=== PATIENT | male | born 1955 | race Caucasian/White ===

== ENCOUNTER 2017-11-18 09:10 | Inpatient (IN) ==
[2017-11-18] MEDS ORDERED: CeFAZolin Syr 2,000MG/20 ML 2,000 MG/20 ML SYRINGE IVPB ONE (09:26)
[2017-11-18] MEDS ORDERED: Albuterol 2.5 MG/3 ML NEBULIZER IH ONE (09:26)
--- NOTE | 2017-11-18 09:29 | History & Physical Report ---
Date of Encounter: 11/18/17 Time of Encounter: 09:29 24 Hour HP Update - Instructions Instructions: If the History and Physical is less than 30 days old and was completed prior to A.M. admission and or procedure and has NOT been updated on calendar day of procedure please complete this update prior to performing procedure. - Update Patient reports changes in Medical Condition: No Changes in examination, assessment, or condition: No Changes in Medication: No Preop tests/diagnostics Reviewed: Yes Surgery Remains Indicated: Yes Consent for Planned Operative Procedure(s) Verified: Yes - Pre-Operative Checklist Preoperative Checklist Indicated: No Prophylactic Antibiotic Ordered: Yes Is VTE Prophylaxis Indicated?: Yes
[2017-11-18] MEDS: Ringers Solution, Lactated 1,000 ML IVC SCH ×3 (09:43→15:36)
--- NOTE | 2017-11-18 09:57 | Anesthesia Evaluation PreOp ---
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 History: Other (mood problems) Other Medical History: Diabetes Type II Anesthesia History: No Prior Anesthetic Complications, Past Anesthesia (R hip, back sx, lithotripsy, kidney stone, teeth extraction, colonoscopy, L knee bursectomy) Alcohol Use: occasionally Drug use: marijuana Medications and Allergies 3 Allergy/AdvReac Type Severity Reaction Status Date / Time No Known Allergies Allergy Unverified 11/14/17 09:15 - Meds/Allergy Pre-op Review Medications Reviewed: Yes Allergies Reviewed: Yes Beta Blockers on Current Med List: No Anesthesia Results - Labs Laboratory Tests 11/14/17 11/14/17 11/14/17 09:25 09:25 09:25 WBC 10.1 Hgb 15.9 Hct 47.3 Plt Count 222 PT 10.0 INR 0.9 APTT 32.6 Sodium 140 Potassium 4.3 Chloride 107 Carbon Dioxide 24 BUN 14 Creatinine 0.88 BUN/Creatinine Ratio 16 POC Glucose Est Mean Plasma Glucose Hemoglobin A1c 11/14/17 11/18/17 09:25 09:30 WBC Hgb Hct Plt Count PT INR APTT Sodium Potassium Chloride Carbon Dioxide BUN Creatinine BUN/Creatinine Ratio POC Glucose 107 H Est Mean Plasma Glucose 140 Hemoglobin A1c 6.5 H - Imaging EKG: report reviewed (yInterpretive Statements SINUS RHYTHM WITH OCCASIONAL SUPRAVENTRICULAR PREMATURE COMPLEXES NONSPECIFIC T-WAVE ABNORMALITY Electronically Signed On 11-15-2017 10:10:51 EDT by Alvaro Fu) Anesthesia Exam O2 Sat Height 1.65 m Height 1.65 m Height 1.65 m Weight 88.451 kg Weight 88.451 kg Weight 88.451 kg O2 Sat by Pulse Oximetry 95 O2 Sat by Pulse Oximetry 94 Vital Signs Resp Pulse Ox 18 94 11/18/17 09:30 11/18/17 09:30 Blood glucose: 107 Height: 65" Weight: 195lbs - HEENT Pupil (Motor): Pupils equal, EOMI - BRAKE COUPLER DINKEY LOC: Oriented BRAKE COUPLER DINKEY Motor: Normal RUE, Normal LUE, Normal RLE, Normal LLE, Normal Face BRAKE COUPLER DINKEY Sensory: Normal: RUE, LUE, RLE, LLE, Face - Cardiac Rhythm: Regular - Pulmonary Breath Sounds: bilateral Clear Respiratory Effort: Symmetrical Anesthesia Assess/Plan ASA Score: 2 Modified [place] Scale for Level of Consciousness: Cooperative, oriented, and tranquil Anesthetic Plan: General (plan b), Regional (spinal with duramorph), MAC Monitoring Plan: Standard Monitors Recovery Plan: PACU
[2017-11-18] MEDS ORDERED: *HR* Midazolam HCl 2 MG/2 ML VIAL ONE (10:07)
[2017-11-18] MEDS ORDERED: *HR* FentaNYL (PF) 100 MCG/2 ML VIAL ONE (10:07)
[2017-11-18] MEDS ORDERED: *HR* Propofol 200 MG/20 ML VIAL IVP ONE (10:07)
[2017-11-18] MEDS ORDERED: Propofol 500 MG/50 ML INFUS..BTL ONE (10:08)
[2017-11-18] MEDS ORDERED: Ethanol\\Acetic Acid\\Na Ace\\Ben 1,000 ML IRRIG.SOLN IR ONE (10:09)
[2017-11-18] MEDS ORDERED: Scopolamine Patch 1.5 MG PATCH.TD72 ONE (10:14)
[2017-11-18] MEDS ORDERED: Morphine Sulfate/PF 5mg/10mL Vial ONE (10:15)
--- NOTE | 2017-11-18 10:41 | Discharge Summary ---
Orders not resulted at time of discharge: Pending orders 11/18/17 09:29 Left Hip [XR hip complete LT] [XR] Routine 11/18/17 09:30 Hemoglobin and Hematocrit [HEME] Routine Date of Encounter: 11/21/17 Time of Encounter: 07:47 - Discharge Diagnosis (1) Hyperlipidemia Priority: Secondary Status: Chronic Qualifiers: Hyperlipidemia type: unspecified Qualified Code(s): E78.5 - Hyperlipidemia , unspecified (2) Type 2 diabetes mellitus Priority: Secondary Status: Acute Qualifiers: Diabetes mellitus termination clerk insulin use: unspecified detention insulin use status Diabetes mellitus complication status: without complication Qualified Code(s): E11.9 - Type 2 diabetes mellitus without complications (3) Tobacco consumption Priority: Secondary Status: Chronic (4) Obesity (BMI 30.0-34.9) Priority: Secondary Status: Chronic (5) Arthritis of left hip Priority: Primary Status: Chronic (6) Status post total hip replacement, left Priority: Primary Status: Acute - Hospital Course Hospital course: Mr. Gonzalez is a 62 year old male Status post total hip replacement The patient had an uneventful postoperative course. They received antibiotics and physical therapy and were discharged in stable condition. There will follow -up in the office in 2 weeks. - Time Spent with Patient Total time spent providing and/or coordinating discharge services: - Discharge Medications Home Medications: Aspirin Enteric Coated [Aspirin EC] 325 mg PO BID #20 tablet. 11/18/17 [Rx] Atorvastatin [Lipitor] 40 mg PO HS 11/18/17 [History] Citalopram Hydrobromide [Citalopram HBr] 40 mg PO DAILY 11/18/17 [History] Meloxicam 15 mg PO DAILY 11/18/17 [History] OxyCODONE Immed Rel [Roxicodone 5 MG] 5 mg PO Q4HR PRN 5 Days #20 tablet [Rx] metFORMIN [Glucophage] 500 mg PO BID 11/18/17 [History] Allergies/Adverse Reactions: 3 Allergy/AdvReac Type Severity Reaction Status Date / Time No Known Allergies Allergy Verified 11/18/17 10:08 Primary care physician: Jan Silva MD Labs on day of discharge: Labs from last 24 hours 11/18/17 09:30 POC Glucose 107 H - Patient Status Disposition: Home, Self-Care Condition: Good Functional capacity at discharge: uses cane/walker Overall status at discharge: patient is progressing back to baseline - Discharge Instructions Follow Up With: Elissa Fernandez PAC [Physician Shelter Case Manager] - 11/25/17 1:30 pm Jan Silva MD [Primary Care Provider] - Cherelle Dillon [Family Provider] - Additional Instructions: Discharge Instructions: Total Hip Replacement Please call [facility] ([phone]), your Primary Care Physician, or report to the Emergency Room if you have any of the following symptoms: Nausea, vomiting, fever greater that 101.5, swelling, chest pain, shortness of breath, increased pain/redness/drainage/odor for your incision site, numbness/ tingling, or any other concerning symptoms. ACTIVITY:Weight-bearing as tolerated for 8 weeks with hip dislocation precautions that physical therapy taught you. You may progress as tolerated under the guidance of your physical therapist. You do not need to sleep with a pillow between your legs. You can also seep on the operative side or on your stomach. MEDICATIONS: Upon discharge resume your home medications. Take all the medications as prescribed. Take a stool softener if taking narcotic pain medications. Stool softeners are only effective if you drink enough fluids. Drink 6-8 glass of water or fluids a day, unless this is not allowed for another health problem. Despite using stool softeners, if you haven't had a bowel movement in 3 days, please switch to a gentle laxative. Gentle laxatives are sold over the counter. You should have a bowel movement within 24 hours, if not call the office. You will be discharged from the hospital with a prescription for pain medication. You are encouraged to decrease the use of narcotic pain medication as tolerated. Should you require a refill, please call the office. [facility] prescribes narcotic pain medication for only 4-6 weeks after surgery. If you require pain medication beyond this time period, you may be referred to your Primary Care Physician or to the Pain Clinic for further evaluation. Plan ahead for refills on pain medication as many narcotics either need to be picked up at the office or mailed. It is best to call 48-72 hours in advance of needing a prescription refill so you don't run out of medication. To help control the post-operative pain, you may take NSAIDs (Aleve,Advil, Motrin, ibuprofen, naprosyn) or Tylenol as prescribed on the bottle in addition to the pain medication. ANTICOAGULATION (blood thinners): Continue your Aspirin, Lovenox or Coumadin as prescribed to help prevent a blood clot in the leg or in the lungs. As long as your incision remains dry and you tolerate the NSAIDs (Aleve, Advil, Motrin, Ibuprofen, Naprosyn), it is OK to use the NSAIDS while you are taking your anticoagulation medication. Should your incision start to drain, stop the NSAID and contact our office. Common symptoms of blood clot in the legs include: localized pain, swelling, calf tenderness, redness or discoloration of the skin. Blood clot in the lung symptoms include: shortness of breath, rapid pulse, sweating, and chest pain that worsens with deep breathing, coughing up blood, lightheadedness, feelings of anxiety. If you experience any of these symptoms notify your physician immediately, go to the emergency room, or if having trouble breathing, call 911. WOUND CARE: Leave the dressing on for 7 to 10days. You may change the dressing if it is saturated greater than 50%. Do not get the dressing wet at anytime. Wash your hands with antibacterial soap, rinse and dry prior to any wound care. If you have yi the visiting nurse or rehab facility can remove the stapes 10-14 days after surgery and place steri-strips across the wound. Leave the steri-strips in place until they fall off on their own. You may let water from the shower run on top of the steri-strips. If you do not have a visiting nurse or rehab facility, you will need to return to the office at 10-14 days for the yi to be removed. If you have itching or redness around the dressing call the office. FOLLOW-UP: Please follow up with your surgeon in the orthopedic clinic in 6 weeks from the day of surgery. If you have yi that need to be removed, you will need to come back to the office in 10-14 days from the day of surgery.
[2017-11-18] MEDS ORDERED: *HR* PHENYLEPHRINE 1,000 MCG/10 ML SYRINGE IVP ONE (11:04)
[2017-11-18] MEDS ORDERED: *HR* Promethazine 25 MG/ML VIAL IVP PRN ×2 (11:16→18:07)
--- NOTE | 2017-11-18 11:59 | Orthopedic Operative Note ---
Date of procedure: 11/18/17 Pre-op diagnosis: left hip arthritis Post-op diagnosis: same Procedure: Procedure: Left Total Hip Replacment robotic-assisted Estimated blood loss: 200 cc Hardware: Metal and polyethylene replacement. Reji DM Cup: 54 cup Femoral size 7 stem Head: +12 head with Jayde Procedural Notes: Grade 4 arthritic changes femoral head acetabular socket, procedure performed with robotic assistance. Operative leg 14 mm shorter than nonoperative leg as measured by CT scan preop Operative procedure: The patient was brought to the operating room and placed on the operating room table. After general anesthesia was administered the patient was placed in the lateral decubitus position with the operative leg up. All pressure points were padded appropriately and the head was stabilized in the neutral position. The operative extremity was prepped and draped in the sterile surgical fashion patient received IV antibiotic prior to skin incision. 3 Steinmann pins were placed in the iliac crest 3 cm proximal to the anterior superior iliac spine this was for the robotic-assisted sensor. This was done through a small 2 cm incision. A standard posterior approach is made to the operative hip, the incision was made through the skin and subcutaneous tissue hemostasis was obtained with Bovie cautery. Using careful sharp dissection the fascia was identified and incised exposing the external rotators. The femoral checkpoint was placed leg length was measured at this time utilizing robotic assistance. The external rotators were released off the greater trochanter and tagged with # 2 FiberWire suture. The capsule was T'd open and the hip was brought into internal rotation. Patient noted to have grade 4 arthritic changes femoral head. The femoral neck cut was made at the appropriate level roughly Xmm proximal to the lesser trochanter aced on preoperative templating. An anterior capsulotomy was performed for the anterior retractor. Soft tissues removed from the acetabulum. Patient noted to have grade 4 arthritic changes acetabulum. The acetabulum checkpoint was placed confirmed. The acetabulum was then mapped with robotic assistance. Based on the preoperative plan the acetabulum was reamed in one step with a 53 reamer. The 54 acetabulum was impacted with robotic assistance and 40 degrees of abduction and 21 degrees of anteversion. The hip was brought back in to internal rotation and prepared with the crap game box person followed by the canal finder followed by the reaming process to a size 7/ 8 broaching process in 20 degrees anteversion. It was broached up to the appropriate size 7. Trial reduction revealed leg lengths close to normal. The femoral implant was impacted in place in 20 degrees of anteversion. Trial reduction found the hip to be stable with 12 head and Jayde. The trials were removed and the real implants were impacted in place. The hip was reduced, patient had robotic confirmed leg length of 1 mm longer than the contralateral side. The hip had excellent stability with forward flexion to 90 degrees adduction of 30 degrees and internal rotation of 60 degrees. The hip had no shuck. The hips after 2 minutes with a antibacterial solution. It was irrigated out with 2 L of pulse irrigation. The checkpoints were removed, Steinmann pins were removed. The hip was closed by the PA. The deep tissue was irrigated and closed deep with #1 PDS suture superficially with 0 PDS suture and skin was closed with Dermabond and zip tie. The patient was placed in a sterile dressing and abduction pillow. The patient was extubated and transferred to the recovery room in stable condition. Anesthesia: spinal Surgeon: Ac Carpenter Was there an assistant professor of spanish present: No Estimated blood loss (cc): 200 Condition: stable Disposition: PACU
[2017-11-18 12:38] LABS: Hematocrit 39.4 % (37.5-50.1)
[2017-11-18 12:40] LABS: Hemoglobin 13.3 g/dL (12.9-16.9)
[2017-11-18] MEDS ORDERED: Naloxone 0.4 MG/ML INJ IVP PRN (12:49)
[2017-11-18] MEDS ORDERED: MOM Conc 10 ML UD.LIQ PO PRN (12:49)
[2017-11-18] MEDS ORDERED: *HR* Dextrose 50 % in Water (Syg) 50 ML SYRINGE IVP PRN (12:49)
[2017-11-18] MEDS ORDERED: Dextrose Gel 15 GM/37.5 ML TUBE PO PRN ×2 (12:49)
[2017-11-18] MEDS ORDERED: Temazepam 15 MG CAPSULE PO PRN (12:49)
[2017-11-18] MEDS ORDERED: traMADol 50 MG TABLET PO PRN (12:49)
[2017-11-18] MEDS ORDERED: Sennosides 8.6 MG TABLET PO PRN (12:49)
[2017-11-18] MEDS ORDERED: D5% in Water 1,000 ML IVC PRN (12:49)
[2017-11-18] MEDS: Insulin LISPRO 300 UNITS/3 ML VIAL SQ SCH ×3 (14:05→21:42)
[2017-11-18] MEDS: Ondansetron 4 MG/2 ML VIAL IVP PRN (14:10)
[2017-11-18] MEDS: *HR* OxyCODONE/APAP 5/325 TABLET PO PRN ×2 (15:32→21:38)
--- NOTE | 2017-11-18 16:52 | Event Note ---
Date of Encounter: 11/18/17 Time of Encounter: 13:30 Patient seen this afternoon following surgery for concern of possible foot drop. Patient's nurse notified me of this concern and patient's worry regarding this. Angiogramed patient resting in bed alert and oriented. Spouse at bedside. Inspection of the left leg is expected postoperative changes with incision with bandage as well as mild swelling to the operative leg. Patient is neurovascularly intact to left lower leg. He does admit to some altered sensation ongoing however patient received a spinal block prior to surgery and therefore this is expected. Range of motion of the left foot is full and intact strength is intact. No foot drop noted. Believe he turning in of the left foot is related to patient's immediate postoperative state. Discussed this with patient and patient's spouse as well as patient's nurse and informed and to keep close watch for any worsening of his symptoms or loss of range of motion or strength. They verbalized understanding.
[2017-11-18] MEDS: *HR* Enoxaparin 30 MG/0.3 ML SYRINGE SQ SCH (17:43)
[2017-11-18] MEDS ORDERED: *HR* Enoxaparin 30 MG/0.3 ML SYRINGE SQ SCH (18:00)
[2017-11-18] MEDS ORDERED: Famotidine 20 MG TABLET PO SCH ×2 (18:05→18:15)
[2017-11-18] MEDS: CeFAZolin Pre 2,000 MG/100 ML 2,000 MG/100 ML BAG IVPB SCH (18:27)
[2017-11-18] MEDS: tiZANidine 4 MG TABLET PO PRN (18:27)
[2017-11-18] MEDS: Ascorbic Acid 500 MG TABLET PO SCH (18:28)
[2017-11-18] MEDS: *HR* Metformin 500 MG TABLET PO SCH (18:28)
[2017-11-19] MEDS: CeFAZolin Pre 2,000 MG/100 ML 2,000 MG/100 ML BAG IVPB SCH (00:51)
[2017-11-19 00:57] LABS: Hematocrit 36.8 % (37.5-50.1); Hemoglobin 12.7 g/dL (12.9-16.9)
[2017-11-19 01:18] LABS: BUN/Creatinine Ratio 18 (6-26); Blood Urea Nitrogen 14 mg/dL (8-23); Calcium 8.8 mg/dL (8.6-10.3); Carbon Dioxide 26 mEq/L (23-29); Chloride 104 mEq/L (98-107); Glucose 135 mg/dL (70-105); Osmolality,Calculated 287 (280-300); Potassium 4.5 mEq/L (3.5-5.1); Sodium 137 mEq/L (136-145); eGFR For African Americans > 60 (> 60); eGFR For Non-African Americans > 60 (> 60)
[2017-11-19] MEDS: *HR* OxyCODONE Immed Rel 5 MG TABLET PO PRN ×5 (03:58→20:54)
[2017-11-19] MEDS: *HR* Enoxaparin 30 MG/0.3 ML SYRINGE SQ SCH ×2 (06:04→16:56)
[2017-11-19] MEDS: Ringers Solution, Lactated 1,000 ML IVC SCH ×2 (06:04→17:07)
[2017-11-19] MEDS: tiZANidine 4 MG TABLET PO PRN ×2 (07:40→15:38)
[2017-11-19] MEDS: Ascorbic Acid 500 MG TABLET PO SCH ×2 (07:41→16:56)
[2017-11-19] MEDS: Multivit/Ca/Min/Fe/FA 1 TAB TABLET PO SCH (07:41)
[2017-11-19] MEDS: *HR* Metformin 500 MG TABLET PO SCH ×2 (07:41→16:56)
[2017-11-19] MEDS: Insulin LISPRO 300 UNITS/3 ML VIAL SQ SCH ×4 (07:44→20:56)
[2017-11-19] MEDS: Ondansetron 4 MG/2 ML VIAL IVP PRN (08:42)
[2017-11-19] MEDS: Acetaminophen IV 1,000 MG/100 ML INFUS..BTL IVPB PRN ×2 (10:14→21:06)
[2017-11-19] MEDS: *HR* OxyCODONE/APAP 5/325 TABLET PO PRN (23:34)
[2017-11-20] MEDS: *HR* OxyCODONE Immed Rel 5 MG TABLET PO PRN ×3 (01:57→10:47)
[2017-11-20] MEDS: *HR* OxyCODONE/APAP 5/325 TABLET PO PRN ×2 (04:10→08:01)
[2017-11-20] MEDS: Ringers Solution, Lactated 1,000 ML IVC SCH (06:07)
[2017-11-20] MEDS: *HR* Enoxaparin 30 MG/0.3 ML SYRINGE SQ SCH (06:12)
[2017-11-20 06:53] LABS: Hematocrit 32.6 % (37.5-50.1); Hemoglobin 11.5 g/dL (12.9-16.9)
[2017-11-20 07:11] LABS: BUN/Creatinine Ratio 19 (6-26); Blood Urea Nitrogen 14 mg/dL (8-23); Calcium 8.8 mg/dL (8.6-10.3); Carbon Dioxide 27 mEq/L (23-29); Chloride 102 mEq/L (98-107); Glucose 151 mg/dL (70-105); Osmolality,Calculated 285 (280-300); Potassium 3.9 mEq/L (3.5-5.1); Sodium 136 mEq/L (136-145); eGFR For African Americans > 60 (> 60); eGFR For Non-African Americans > 60 (> 60)
[2017-11-20 07:42] VITALS: BP 156/72
[2017-11-20] MEDS: Insulin LISPRO 300 UNITS/3 ML VIAL SQ SCH (07:42)
[2017-11-20] MEDS: *HR* Metformin 500 MG TABLET PO SCH (07:43)
[2017-11-20] MEDS: Ascorbic Acid 500 MG TABLET PO SCH (07:43)
[2017-11-20] MEDS: Multivit/Ca/Min/Fe/FA 1 TAB TABLET PO SCH (07:43)
--- NOTE | 2017-11-20 15:39 | Orthopedics Progress Note ---
Date of Encounter: 11/19/17 Time of Encounter: 07:35 Subjective Principal diagnosis: Status post total hip arthroplasty Interval history: The patient is without complaints. Afebrile vital signs are stable. Incision is clean dry and intact. Neurovascularly intact with regard to bilateral lower extremities. Fires all upper and lower extremity motor groups. Assessment : stable. Plan mobilize ,continue analgesics, discharge planning. Objective Vital signs: Vital Signs Temp Pulse Resp BP Pulse Ox 11/20/17 07:33 97.7 F 120 18 156/72 93 11/20/17 04:22 98.6 F 105 18 148/78 98 11/19/17 23:26 98.9 F 100 16 129/74 93 11/19/17 19:39 100.6 F H 116 16 145/79 93 Intake and Output 11/19/17 11/20/17 11/20/17 23:59 07:59 15:59 Intake Total 569 / 569 200 / 200 240 / 240 Output Total 500 / 500 500 / 500 Balance 69 / 69 -300 / -300 240 / 240 Intake: IV Fluids 269 / 269 Lactated Ringers 1,000 ML @ 75 169 / 169 mls/hr IVC .[id number] MELISSA Rx#: [id number] Ofirmev 1,000 mg/100 ml 1,000 100 / 100 mg In 100 ml @ 400 mls/hr IVPB Q6H PRN Rx#:[id number] Oral 300 / 300 200 / 200 240 / 240 Output: Urine 500 / 500 500 / 500 Other: Meal Breakfast Percent of Meal Consumed 75% Blood Glucose* 124 134 - Labs CBC & BMP: 11/20/17 06:10 11/20/17 06:10 Labs: Abnormal lab results Hgb 11.5 g/dL (12.9-16.9) L 11/20/17 06:10 Hct 32.6 % (37.5-50.1) L 11/20/17 06:10 Glucose 151 mg/dL (70-105) H 11/20/17 06:10 POC Glucose 134 mg/dL (70-99) H 11/20/17 07:41 - VTE Documentation of Mechanical Device: Venous foot pump, device Consult Discharge Plan - Plan Additional Instructions: Discharge Instructions: Total Hip Replacement Please call [facility] ([phone]), your Primary Care Physician, or report to the Emergency Room if you have any of the following symptoms: Nausea, vomiting, fever greater that 101.5, swelling, chest pain, shortness of breath, increased pain/redness/drainage/odor for your incision site, numbness/ tingling, or any other concerning symptoms. ACTIVITY:Weight-bearing as tolerated for 8 weeks with hip dislocation precautions that physical therapy taught you. You may progress as tolerated under the guidance of your physical therapist. You do not need to sleep with a pillow between your legs. You can also seep on the operative side or on your stomach. MEDICATIONS: Upon discharge resume your home medications. Take all the medications as prescribed. Take a stool softener if taking narcotic pain medications. Stool softeners are only effective if you drink enough fluids. Drink 6-8 glass of water or fluids a day, unless this is not allowed for another health problem. Despite using stool softeners, if you haven't had a bowel movement in 3 days, please switch to a gentle laxative. Gentle laxatives are sold over the counter. You should have a bowel movement within 24 hours, if not call the office. You will be discharged from the hospital with a prescription for pain medication. You are encouraged to decrease the use of narcotic pain medication as tolerated. Should you require a refill, please call the office. [facility] prescribes narcotic pain medication for only 4-6 weeks after surgery. If you require pain medication beyond this time period, you may be referred to your Primary Care Physician or to the Pain Clinic for further evaluation. Plan ahead for refills on pain medication as many narcotics either need to be picked up at the office or mailed. It is best to call 48-72 hours in advance of needing a prescription refill so you don't run out of medication. To help control the post-operative pain, you may take NSAIDs (Aleve,Advil, Motrin, ibuprofen, naprosyn) or Tylenol as prescribed on the bottle in addition to the pain medication. ANTICOAGULATION (blood thinners): Continue your Aspirin, Lovenox or Coumadin as prescribed to help prevent a blood clot in the leg or in the lungs. As long as your incision remains dry and you tolerate the NSAIDs (Aleve, Advil, Motrin, Ibuprofen, Naprosyn), it is OK to use the NSAIDS while you are taking your anticoagulation medication. Should your incision start to drain, stop the NSAID and contact our office. Common symptoms of blood clot in the legs include: localized pain, swelling, calf tenderness, redness or discoloration of the skin. Blood clot in the lung symptoms include: shortness of breath, rapid pulse, sweating, and chest pain that worsens with deep breathing, coughing up blood, lightheadedness, feelings of anxiety. If you experience any of these symptoms notify your physician immediately, go to the emergency room, or if having trouble breathing, call 911. WOUND CARE: Leave the dressing on for 7 to 10days. You may change the dressing if it is saturated greater than 50%. Do not get the dressing wet at anytime. Wash your hands with antibacterial soap, rinse and dry prior to any wound care. If you have yi the visiting nurse or rehab facility can remove the stapes 10-14 days after surgery and place steri-strips across the wound. Leave the steri-strips in place until they fall off on their own. You may let water from the shower run on top of the steri-strips. If you do not have a visiting nurse or rehab facility, you will need to return to the office at 10-14 days for the yi to be removed. If you have itching or redness around the dressing call the office. FOLLOW-UP: Please follow up with your surgeon in the orthopedic clinic in 6 weeks from the day of surgery. If you have yi that need to be removed, you will need to come back to the office in 10-14 days from the day of surgery. Referrals: Elissa Fernandez PAC [Physician Hat Liner] - 11/25/17 1:30 pm Jan Silva MD [Primary Care Provider] - Cherelle Dillon [Family Provider] -
== END 2017-11-20 11:28 | disposition home or self-care (01) | DRG 470 ==
LOC: SAMDAY 09:10 → 3NENU 12:45
PROVIDERS: ADMIT Orthopaedic Surgery; ATTEND Orthopaedic Surgery

== ENCOUNTER 2021-06-16 11:22 | Inpatient (IN) ==
[2021-06-16] MEDS ORDERED: cefOXitin 2,000 MG in Water for inj. (sterile) 10 ML IVP ONE (11:53)
[2021-06-16] MEDS ORDERED: *HR* OxyCODONE Immed Rel 5 MG TABLET PO PRN (11:59)
[2021-06-16] MEDS ORDERED: Famotidine 20 MG/2 ML VIAL IVP ONE (11:59)
[2021-06-16] MEDS ORDERED: Ondansetron 4 MG/2 ML VIAL IVP PRN ×2 (11:59→19:03)
[2021-06-16] MEDS ORDERED: Scopolamine Patch 1.5 MG PATCH.TD72 TD ONE (11:59)
[2021-06-16] MEDS ORDERED: Albuterol 2.5 MG/3 ML NEBULIZER IH PRN (11:59)
[2021-06-16] MEDS ORDERED: *HR* HYDROmorphone PF 0.5 MG/0.5 ML SYRINGE IVP PRN (11:59)
[2021-06-16] MEDS ORDERED: Acetaminophen IV 1,000 MG/100 ML BAG IVPB ONE (11:59)
[2021-06-16] MEDS ORDERED: Ringers Solution, Lactated 1,000 ML IVC SCH (12:00)
[2021-06-16] MEDS ORDERED: *HR* FentaNYL (PF) 100 MCG/2 ML VIAL ONE ×2 (14:39→15:43)
[2021-06-16] MEDS ORDERED: Lidocaine -MPF 4% 5 ML AMPUL ONE ×2 (14:39→15:09)
[2021-06-16] MEDS ORDERED: *HR* Rocuronium Bromide 50 MG/5 ML VIAL ONE ×2 (14:39→16:20)
[2021-06-16] MEDS ORDERED: *HR* Propofol 200 MG/20 ML VIAL IVP ONE (14:39)
[2021-06-16] MEDS ORDERED: Ondansetron 4 MG/2 ML VIAL ONE (14:39)
[2021-06-16] MEDS ORDERED: *HR* Midazolam HCl 2 MG/2 ML VIAL ONE (14:50)
[2021-06-16] MEDS ORDERED: EPHEDrine 50 MG/ML VIAL ONE (15:19)
[2021-06-16] MEDS ORDERED: *HR* HYDROMORPHONE 2 MG/ML VIAL ONE (15:57)
[2021-06-16] MEDS ORDERED: *HR* Labetalol 20 MG/4 ML SYRINGE IVP ONE (16:09)
[2021-06-16] MEDS ORDERED: Sugammadex Sodium 200 MG/2 ML VIAL IV ONE (16:43)
[2021-06-16] MEDS ORDERED: Dextrose Gel 15 GM/37.5 ML TUBE PO PRN ×2 (19:03)
[2021-06-16] MEDS ORDERED: *HR* Dextrose 50 % in Water (Syg) 50 ML SYRINGE IVP PRN (19:03)
[2021-06-16] MEDS ORDERED: *HR* OxyCODONE/APAP 5/325 TABLET PO PRN (19:03)
[2021-06-16] MEDS ORDERED: Naloxone 0.4 MG/ML INJ IVP PRN (19:03)
[2021-06-16] MEDS ORDERED: D5% in Water 1,000 ML IVC PRN (19:03)
[2021-06-16] MEDS: Ketorolac 30 MG/ML VIAL IVP SCH ×2 (19:59→23:42)
[2021-06-16] MEDS: 0.9 % Sodium Chloride 1,000 ML IVC SCH (19:59)
[2021-06-16] MEDS: Insulin LISPRO 300 UNITS/3 ML VIAL SUBQ SCH ×2 (20:04→23:34)
[2021-06-16] MEDS: Morphine Sulfate Oral CONC 10 MG/0.5 ML ORAL.SYG SL PRN (20:04)
[2021-06-16] MEDS: cefOXitin 1,000 MG in Water for inj. (sterile) 10 ML IVP SCH (23:43)
[2021-06-17] MEDS: Morphine Sulfate Oral CONC 10 MG/0.5 ML ORAL.SYG SL PRN ×3 (00:49→21:01)
[2021-06-17 01:20] LABS: Basophils % 0.1 %; Hematocrit 34.1 % (37.5-50.1); Hemoglobin 11.2 g/dL (12.9-16.9); Immature Granulocytes % 0.3 % (0-4); Lymphocytes # 0.8 K/mcL (0.6-4.6); Lymphocytes % 7.1 %; Mean Corpuscular HGB Conc 32.8 g/dL (31.6-35.5); Mean Corpuscular Hemoglobin 36.4 pg (28.0-33.3); Mean Corpuscular Volume 110.7 fL (83.0-100.0); Mean Platelet Volume 10.1 fL (9.4-12.4); Monocytes # 0.6 K/mcL (0.0-1.3); Monocytes % 5.5 %; Platelet Count 193 K/mcL (140-400); Red Blood Count 3.08 M/mcL (4.19-5.50); Red Cell Distribution Width 13.1 % (11.5-14.5); White Blood Count 11.5 K/mcL (4.3-11.1)
[2021-06-17 01:38] LABS: BUN/Creatinine Ratio 18 (6-26); Blood Urea Nitrogen 21 mg/dL (8-23); Calcium 8.3 mg/dL (8.6-10.3); Carbon Dioxide 20 mEq/L (23-29); Chloride 108 mEq/L (98-107); Glucose 142 mg/dL (70-105); Osmolality,Calculated 293 (280-300); Potassium 4.7 mEq/L (3.5-5.1); Sodium 139 mEq/L (136-145); eGFR For African Americans > 60 (> 60); eGFR For Non-African Americans > 60 (> 60)
[2021-06-17 01:39] LABS: Anisocytosis 1+ (Not Present); Platelet Estimate Normal (Normal)
[2021-06-17] MEDS: Ketorolac 30 MG/ML VIAL IVP SCH ×3 (05:55→18:02)
[2021-06-17] MEDS: Insulin LISPRO 300 UNITS/3 ML VIAL SUBQ SCH ×3 (06:08→18:02)
[2021-06-17] MEDS: 0.9 % Sodium Chloride 1,000 ML IVC SCH ×2 (08:17→21:01)
[2021-06-17] MEDS: lisinopriL 10 MG TABLET PO SCH (08:17)
[2021-06-17] MEDS: cefOXitin 1,000 MG in Water for inj. (sterile) 10 ML IVP SCH ×2 (08:19→17:23)
[2021-06-17] MEDS: *HR* Heparin 5,000 UNIT/ML VIAL SQ SCH (17:24)
[2021-06-18] MEDS: Ketorolac 30 MG/ML VIAL IVP SCH ×3 (02:48→13:10)
[2021-06-18] MEDS: Insulin LISPRO 300 UNITS/3 ML VIAL SUBQ SCH ×3 (03:23→13:07)
[2021-06-18] MEDS: *HR* Heparin 5,000 UNIT/ML VIAL SQ SCH (05:43)
[2021-06-18 07:38] VITALS: TEMP 98.4
[2021-06-18 07:41] LABS: White Blood Count 8.5 K/mcL (4.3-11.1)
[2021-06-18 07:42] LABS: Basophils % 0.2 %; Eosinophils % 0.1 %; Hematocrit 24.9 % (37.5-50.1); Immature Granulocytes % 0.2 % (0-4); Mean Corpuscular HGB Conc 33.7 g/dL (31.6-35.5); Mean Corpuscular Hemoglobin 36.7 pg (28.0-33.3); Mean Corpuscular Volume 108.7 fL (83.0-100.0); Mean Platelet Volume 10.3 fL (9.4-12.4); Monocytes # 0.7 K/mcL (0.0-1.3); Neutrophils # 5.8 K/mcL (1.6-8.9); Platelet Count 165 K/mcL (140-400); Red Blood Count 2.29 M/mcL (4.19-5.50); Red Cell Distribution Width 13.1 % (11.5-14.5); Segmented Neutrophils % 68.5 %
[2021-06-18 07:46] LABS: BUN/Creatinine Ratio 17 (6-26); Blood Urea Nitrogen 15 mg/dL (8-23); Calcium 8.4 mg/dL (8.6-10.3); Carbon Dioxide 23 mEq/L (23-29); Chloride 112 mEq/L (98-107); Glucose 82 mg/dL (70-105); Magnesium 1.8 mg/dL (1.6-2.6); Osmolality,Calculated 292 (280-300); Phosphorous 2.1 mg/dL (2.7-4.5); Potassium 3.8 mEq/L (3.5-5.1); Sodium 141 mEq/L (136-145); eGFR For African Americans > 60 (> 60); eGFR For Non-African Americans > 60 (> 60)
[2021-06-18 07:55] LABS: Hemoglobin 8.4 g/dL (12.9-16.9)
[2021-06-18] MEDS: lisinopriL 10 MG TABLET PO SCH (08:58)
[2021-06-18 10:59] VITALS: BP 148/79; PULSE 100; O2SAT 93
== END 2021-06-18 14:08 | disposition home or self-care (01) | DRG 330 ==
LOC: SAMDAY 11:22 → 3ANU 19:02
PROVIDERS: ADMIT Surgery; ATTEND Surgery